=== PATIENT | male | born 1995 | race African-American/Black ===

== ENCOUNTER 2018-12-11 22:59 | Emergency (ER) | payer OTHER ==
[2018-12-11 23:03] VITALS: BP 156/71; PULSE 85; TEMP 98.1; BMI 20.9
--- NOTE | 2018-12-11 23:43 | PDOC ---
History of Present Illness - General Chief Complaint: Injury Stated Complaint: RT ANKLE INJURY Time Seen by Provider: 12/11/18 23:17 History Source: Patient Exam Limitations: No Limitations - History of Present Illness Initial Comments: 12/11/18 23:40 Patient is a 23M with no significant medical history here today complaining of L ankle pain that onset today after landing on an inverted foot playing basketball. Denies other trauma. Denies fevers, chills, nausea, vomiting. Denies abdominal pain, chest pain. Past History - Past Medical History Allergies/Adverse Reactions: Allergies Allergy/AdvReac Type Severity Reaction Status Date / Time No Known Allergies Allergy Verified 12/11/18 23:04 COPD: No - Suicide/Smoking/Psychosocial Hx Smoking History: Never smoked Have you smoked in the past 12 months: No Information on smoking cessation initiated: No Hx Alcohol Use: No Drug/Substance Use Hx: No Review of Systems - Review of Systems Able to Perform ROS?: Yes Comments:: 12/11/18 23:42 GENERAL/CONSTITUTIONAL: No fever or chills. No weakness. CARDIOVASCULAR: No chest pain or shortness of breath RESPIRATORY: No cough, wheezing, or hemoptysis. GASTROINTESTINAL: No nausea, vomiting, diarrhea or constipation. MUSCULOSKELETAL: +L ankle pain. No neck or back pain. SKIN: No rash NEUROLOGIC: No headache, vertigo, loss of consciousness, or change in strength/ sensation. *Physical Exam - Vital Signs Last Vital Signs Temp Pulse Resp BP Pulse Ox 98.1 F 85 16 156/71 100 12/11/18 23:01 12/11/18 23:01 12/11/18 23:01 12/11/18 23:01 12/11/18 23:01 - Physical Exam Comments: 12/11/18 23:42 GENERAL: Awake, alert, and fully oriented, in no acute distress L ANKLE/FOOT: Tender on medial malleolus, nontender on other bony prominences, neurovascularly intact. HEAD: No signs of trauma, normocephalic, atraumatic EYES: PERRLA, EOMI, sclera anicteric, conjunctiva clear ENT: Auricles normal inspection, hearing grossly normal, nares patent, oropharynx clear without exudates. Moist mucosa NECK: Normal ROM, supple, no lymphadenopathy, JVD, or masses LUNGS: No distress, speaks full sentences, clear to auscultation bilaterally HEART: Regular rate and rhythm, normal S1 and S2, no murmurs, rubs or gallops, peripheral pulses normal and equal bilaterally. ABDOMEN: Soft, nontender, normoactive bowel sounds. No guarding, no rebound. No masses EXTREMITIES: Normal inspection, Normal range of motion, no edema. No clubbing or cyanosis. NEUROLOGICAL: Cranial nerves II through XII grossly intact. Normal speech, no focal sensorimotor deficits SKIN: Warm, Dry, normal turgor, no rashes or lesions noted ED Treatment Course - RADIOLOGY Radiology Studies Ordered: Category Date Time Status ANKLE & FOOT-LEFT* [RAD] Stat Radiology 12/11/18 23:24 Ordered Medical Decision Making - Medical Decision Making 12/11/18 23:43 Patient is 23M with ankle pain, fracture vs sprain. Vitals normal and stable. Will do x-ray for fracture evaluation. 12/12/18 00:00 X-ray shows swelling along medial proximal foot, no fracture or dislocation. Will discharge with crutches, tray wrap, and ortho follow up. *DC/Admit/Observation/Transfer Diagnosis at time of Disposition: Ankle pain, left - Discharge Dispostion Disposition: HOME Condition at time of disposition: Good Decision to Admit order: No - Referrals Referrals: Adan Fuller MD [Staff Physician] - - Patient Instructions Printed Discharge Instructions: DI for Ankle Pain Additional Instructions: Your x-rays did not show a fracture of your ankle. However, you still need to follow up with an orthopedic doctor. Please call the one below tomorrow to set up an appointment. Please return if you have any new, worsening or concerning symptoms, especially increasing pain, weakness, or change in sensation. Please use ice and ibuprofen to treat your pain and swelling. - Post Discharge Activity Forms/Work/School Notes: Back to Work
--- NOTE | 2018-12-12 00:06 | PDOC ---
Attending Attestation - HPI HPI: 12/12/18 00:08 The patient is a 23-year-old male with no significant past medical history presents to the emergency department with left ankle pain. The patient reports he was playing basketball when he landed on an inverted foot. Denies numbness, tingling or loss of sensation. - Physicial Exam PE: 12/12/18 00:08 Vitals: Triage Vital signs reviewed General Appearance: no acute distress, well nourished well developed, Extremities: +swelling to the medial malleolus. Full range of motion to all extremities, no cyanosis, clubbing, or edema. - Medical Decision Making 12/12/18 00:08 Documentation prepared by Sully Burt, acting as medical cost consultant for Gabo Doan MD. <Sully Burt - Last Filed: 12/12/18 00:08> - Resident Resident Name: Gray Harper - ED Attending Attestation I have performed the following: I have examined & evaluated the patient, The case was reviewed & discussed with the resident, I agree w/resident's findings & plan, Exceptions are as noted - Medical Decision Making Ankle sprain no acute fracture dislocation patient provided with crutches and orthopedic follow-up Findings, need for follow-up and strict return instructions discussed with patient. <Gabo Doan - Last Filed: 12/12/18 01:34>
== END 2018-12-12 00:12 | disposition home or self-care (01) ==
LOC: JER 22:59
DX: M25.572 Pain in left ankle and joints of left foot (principal); W18.39XA Other fall on same level, initial encounter; Y93.67 Activity, basketball; Y92.310 Basketball court as the place of occurrence of the external cause; Y99.8 Other external cause status
CPT/HCPCS: 73610-TC-LT-FY; 73630-TC-LT; 99283-25

== ENCOUNTER 2022-07-27 02:21 | Emergency (ER) | payer OTHER ==
[2022-07-27 02:51] VITALS: BP 148/76; PULSE 68; RESP 22; BMI 24.4
[2022-07-27] MEDS ORDERED: morphine CARPU-JECT 2 MG/1 ML DISP.SYRIN IVPUSH ONE (03:25)
[2022-07-27] MEDS ORDERED: morphine CARPU-JECT 4 MG/1 ML DISP.SYRIN IVPUSH ONE (03:34)
[2022-07-27] MEDS ORDERED: morphine SULFATE 4 MG/ML VIAL ONE (03:59)
[2022-07-27 04:31] LABS: BASO % 0.2 % (0-2.0); EOS % 0.3 % (0-4.5); HEMATOCRIT 35.1 % (35.4-49); HEMOGLOBIN 11.8 GM/dL (11.7-16.9); LYMPH % 14.4 % (8-40); MCH 31.5 pg (25.7-33.7); MCHC 33.8 g/dl (32.0-35.9); MEAN CELL VOLUME 93.3 fl (80-96); MEAN PLT VOLUME 9.6 fl (7.5-11.1); MONO % 5.9 % (3.8-10.2); NEUT % 79.2 % (42.8-82.8); PLATELET COUNT 219 10^3/uL (134-434); RBC 3.76 M/mm3 (4.00-5.60); RDW 12.2 % (11.9-15.9); WHITE BLOOD COUNT 7.7 K/mm3 (4.0-10.0)
[2022-07-27 04:36] LABS: INR 1.28 (0.83-1.09); PROTHROMBIN TIME (PATIENT) 14.7 SEC (9.7-13.0)
[2022-07-27 04:49] LABS: ALBUMIN 4.3 g/dl (3.4-5.0); CALCIUM 8.7 mg/dL (8.5-10.1)
[2022-07-27 04:53] LABS: CREATININE 0.9 mg/dL (0.55-1.3)
[2022-07-27 04:54] LABS: BILIRUBIN,TOTAL 0.7 mg/dL (0.2-1); TOT PROT 7.8 g/dl (6.4-8.2)
[2022-07-27 05:00] LABS: BLOOD UREA NITROGEN 12.4 mg/dL (7-18); LACTIC ACID 2.2 mmol/L (0.4-2.0)
== END 2022-07-27 06:52 | disposition home or self-care (01) ==
LOC: JER 02:21
PROC: 3E033NZ Introduction of Analgesics, Hypnotics, Sedatives into Peripheral Vein, Percutaneous Approach (ICD-10-PCS; principal; 2022-07-27)
PROC: 3E033GC Introduction of Other Therapeutic Substance into Peripheral Vein, Percutaneous Approach (ICD-10-PCS; 2022-07-27)
DX: N50.812 Left testicular pain (principal); N43.3 Hydrocele, unspecified
CPT/HCPCS: 36415; 74176-TC; 76870-TC; 80053; 83605; 85025; 85610; 85730; 86850; 86900; 86901; 99285-25